=== PATIENT | male | born 1985 | race Caucasian/White ===

== ENCOUNTER 2019-08-28 17:53 | Emergency (ER) | payer MEDICAID ==
[~2019-08-28] VITALS: Ht 190.5 cm; Wt 108.0 kg
[2019-08-28 19:00] LABS: CLARITY URINE CLEAR (CLEAR); COLOR URINE DARK YELLOW (YELLOW); KETONES URINE TRACE (NEGATIVE); LEUKOCYTE ESTERASE URINE TRACE (NEGATIVE); NITRITE URINE NEGATIVE (NEGATIVE); OCCULT BLOOD URINE 1+ (NEGATIVE); PROTEIN URINE TRACE (NEGATIVE)
[2019-08-28] MEDS ORDERED: KETOROLAC 30MG/ML VIAL IV ONE (19:30)
[2019-08-28 19:55] LABS: CHLORIDE 105 mEq/L (98-107)
[2019-08-28 22:02] LABS: HEMATOCRIT. 39.2 % (42.0-52.0); HEMOGLOBIN. 13.8 g/dL (14.0-18.0); MEAN CORPUSCULAR HEMOGLOBIN 33.1 pg (28.0-32.0); MEAN CORPUSCULAR VOLUME 93.7 fL (80.0-94.0); MEAN PLATELET VOLUME 9.2 fl (7.4-10.4); PLATELET 171 x1000/uL (130-400); RED BLOOD CELL COUNT 4.19 mill/uL (4.7-6.1); RED CELL DISTRIBUTION WIDTH 12.6 % (11.6-14.6)
[2019-08-28 22:25] LABS: PLATELET ESTIMATE NORMAL
[2019-08-28] MEDS ORDERED: IOHEXOL-300 100 ML BOTTLE ONE (22:58)
[2019-08-28 23:04] VITALS: BP 117/76
== END 2019-08-28 23:06 | disposition home or self-care (01) ==
LOC: ER 20:19
DX: B34.9 Viral infection, unspecified (principal); I88.8 Other nonspecific lymphadenitis
CPT/HCPCS: 36415; 74177; 80053; 81003; 85025; 87086; 96374; 99284; J1885; Q9967; Z7610